=== PATIENT | male | born 1995 | race Two or more races ===

== ENCOUNTER 2024-06-30 12:34 | Outpatient (CLI) | payer OTHER | END 2024-06-30 12:50 | disposition home or self-care (01) | LOC: RAD 12:34 | PROVIDERS: ATTEND Physical Medicine & Rehabilitation | DX: M25.532 Pain in left wrist (principal); M25.552 Pain in left hip; M54.59 Other low back pain ==

== ENCOUNTER 2025-03-08 15:09 | Emergency (ER) | payer OTHER ==
[~2025-03-08] VITALS: Ht 188 cm; Wt 90.7 kg
== END 2025-03-08 18:33 | disposition left against medical advice (07) ==
LOC: ER 15:09
DX: R42 Dizziness and giddiness (principal); R07.89 Other chest pain